=== PATIENT | male | born 1955 | race Caucasian/White ===

== ENCOUNTER 2016-11-13 04:17 | Day surgery (SDC) | payer BC ==
[~2016-11-13] VITALS: Ht 175.3 cm; Wt 109.3 kg
--- NOTE | ~2016-11-13 | OP ---
Record Of Operation [facility] [address] [place]. [address] NAME: SAWYER PARKS : 57 STATUS : REG [facility]#: [id number] AGE: 61 ADM/REG DATE : 11/13/16 MR#: [id number] REPORT SERV DATE: 11/13/16 DICTATED BY: COLT DUDLEY DATE: 11/13/16 REPORT STATUS : Draft TRANSCRIBED BY: MODL DATE: 11/13/16 DATE OF PROCEDURE: 11/13/2016 PREOPERATIVE DIAGNOSIS: Umbilical hernia. POSTOPERATIVE DIAGNOSIS: Umbilical hernia. OPERATION PERFORMED: Open umbilical hernia repair with mesh. SURGEON: Colt Dudley M.D. ANESTHESIA: General. ESTIMATED BLOOD LOSS: Less than 10 mL. IV FLUIDS: Adequate. INDICATION FOR PROCEDURE: Mr. Parks is a 61-year-old gentleman who has developed a symptomatic umbilical hernia. After discussion of options for repair, risks and benefits of the procedure were discussed in detail with the patient. DESCRIPTION OF OPERATION: After appropriate sedation, the patient was prepped and draped in proper sterile fashion. Skin and subcutaneous tissues below the umbilicus were infiltrated with local anesthesia. A curvilinear incision was made below the umbilicus. Subcutaneous tissues were incised down to the fascia. The umbilical stalk was encircled and umbilical skin was dissected off the fascia. The hernia sac was imbricated. We dissected the peritoneum off the backside of the umbilical fascia. We then placed a piece of 4 x 3 cm mesh into the preperitoneal space. It was secured to the fascia circumferentially using #1 Nurolon suture. We then closed defect using #1 Vicryl in a transverse interrupted fashion. Back of the skin was well tacked to the fascia using 3-0 Vicryl suture. The skin was closed using interrupted 3-0 Vicryl suture. Dressings were applied. The patient was taken to the recovery room in satisfactory condition. TANIA/VINAY Colt Dudley M.D. / [id number] CC: Eileen Goins DAVID KEITH
[~2016-11-13 04:17] MED LIST: ASAB PO; DIABET2.5 PO; GLUCOPHAGE1000 MG PO; LANTUSCART SC; LIPITOR10 PO; LOTE5 PO; NORV5 PO; NOVOPEN SC; PAX20 PO; TRULICITY1.5 MG/0.5 SQ; [UNRECOGNIZED DRUG - OTHER] PO
[2016-11-13 06:01] LABS: BASOPHILS 0.6 %; BASOPHILS ABSOLUTE 0.05 10/3/uL (0.0-0.16); EOSINOPHILS 2.3 %; EOSINOPHILS ABSOLUTE 0.19 10/3/uL (0.0-0.53); HEMATOCRIT 35.1 % (40.0-51.0); HEMOGLOBIN 11.9 g/dL (13.6-17.8); IMMATURE GRANULOCYTES 0.2 %; IMMATURE GRANULOCYTES ABSOLUTE 0.02 10/3/uL (0.0-0.11); LYMPHOCYTES 18.1 %; MEAN CORPUS HGB CONC 33.9 g/dL (32.0-36.0); MEAN CORPUSCULAR HEMOGLOB 29.8 pg (26.0-34.0); MEAN PLATELET VOLUME 9.8 fL (9.2-13.0); NEUTROPHILS 72.8 %; NEUTROPHILS ABSOLUTE 6.05 10/3/uL (2.02-8.40); PLATELET COUNT 206 10/3/uL (150-400); RBC DISTRIBUTION WIDTH 13.7 % (12.0-16.0); RED CELL COUNT 3.99 10/6/uL (4.7-6.1); WHITE BLOOD CELLS 8.3 10/3/uL (4.5-10.5)
[2016-11-13 06:02] LABS: MANUAL DIFF NO %
[2016-11-13 06:13] LABS: BUN (BLOOD UREA NITROGEN) 30 MG/DL (6-23); CALCIUM, SERUM 9.3 MG/DL (8.5-10.4); CHLORIDE, SERUM 107 MMOL/L (96-112); CO2 (CARBON DIOXIDE) 25 MMOL/L (24-34); CREATININE 2.67 MG/DL (0.70-1.30); GFR AFRICAN AMERICAN 29 ML/MIN (>=60); GFR NON AFRICAN AMERICAN 25 ML/MIN (>=60); GLUCOSE, SERUM 159 MG/DL (60-99); SODIUM, SERUM 141 MMOL/L (135-148)
== END 2016-11-13 11:54 | disposition home or self-care (01) ==
LOC: SDC 04:17
PROVIDERS: Specialist
PROC: 0WUF0JZ Supplement Abdominal Wall with Synthetic Substitute, Open Approach (ICD-10-PCS; principal; 2016-11-13 05:45)
DX: K42.9 Umbilical hernia without obstruction or gangrene (principal); I12.9 Hypertensive chronic kidney disease with stage 1 through stage 4 chronic kidney disease, or unspecified chronic kidney disease; E11.22 Type 2 diabetes mellitus with diabetic chronic kidney disease; N18.4 Chronic kidney disease, stage 4 (severe); E78.5 Hyperlipidemia, unspecified; J98.4 Other disorders of lung; F32.9 Major depressive disorder, single episode, unspecified; F41.9 Anxiety disorder, unspecified; K63.5 Polyp of colon; Z87.442 Personal history of urinary calculi; Z85.118 Personal history of other malignant neoplasm of bronchus and lung; Z85.048 Personal history of other malignant neoplasm of rectum, rectosigmoid junction, and anus; Z90.49 Acquired absence of other specified parts of digestive tract; Z79.82 Long term (current) use of aspirin; Z79.4 Long term (current) use of insulin; Z79.899 Other long term (current) drug therapy; Z98.890 Other specified postprocedural states
CPT/HCPCS: 80048; 82962; 85025; 87641; 93005; C1781; J0690; J2250; J2405; J2710; J3010; J3370